=== PATIENT | female | born 1980 | race Caucasian/White ===

== ENCOUNTER 2021-08-18 17:00 | Inpatient (IN) | payer SELFPAY, OTHER ==
[2021-08-18] VITALS (8 sets, daily range): BP systolic 91–116; BP diastolic 36–63; PULSE 82–94; RESP 18; TEMP 36.1–36.5; O2SAT 97–98; BMI 31.8
[2021-08-18 17:06] LABS: Bedside Glucose 96 mg/dL (74-106)
--- NOTE | 2021-08-18 17:12 | NURSING ---
pt reports taking herbal supplements and unsure of dosage, these include; [place], liquid chlorophyll, evening primose, 6 week formula, and AIM Bar[place] of life.
--- NOTE | 2021-08-18 17:21 | HP.PCM.OB_ITS ---
HPI - General General Date of Admission: 08/18/21 HPI Narrative ROMERO YANEZ, is a 41 F who presents at 39w6d by LMP, confirmed by ultrasound. Presents with complaint of contractions on and off since 08/13/21 at last office visit. Unstable lie and cephalic by US at last visit. Contractions increased this afternoon after taking castor oil around noon today. No leakage of fluid or bleeding. Good movement. Patient was transfer of care from [facility] at 28 weeks. History of Vaginal delivery x 6 and LTCS with three layer closure at [place] 07/13/19 due to hand presentation. PPH and required blood transfusion. Maternal Data Information GAETANO Calculator Estimated Delivery Date Method Current WG Current Estimate 08/19/21 Manual 39w 6d PFSH PFSH Home Medications Evening [place] 08/18/21 [History Last Taken Unknown] calcium 08/18/21 [History Last Taken Unknown] magnesium 08/18/21 [History Last Taken Unknown] vit [id number] <1mg-diet1 08/18/21 [History Last Taken Unknown] Allergy/AdvReac Type Severity Reaction Status Date / Time No Known Allergies Allergy Verified 08/18/21 16:27 NST FHR Rate Baby A Baseline: 125 Variability:: Moderate Accelerations:: 15 x 15 Decelerations:: None FHR Category:: Category I Uterine Activity:: Every 2-4 minutes, mild ROS Constitutional Constitutional: Reports systems reviewed and no addt'l complaints, except as documented; Denies headache(s) Eyes Eyes: Denies acute decrease in peripheral vision, blurry vision or change in vision ENT HEENT: Reports systems reviewed and no addt'l complaints, except as documented Cardiovascular Cardiovascular: Denies chest pain or dizziness Respiratory/Chest Respiratory/Chest: Denies cough, dyspnea, dyspnea on exertion, shortness of breath at rest or shortness of breath with exertion Gastrointestinal Gastrointestinal: Denies abdominal pain, diarrhea, nausea or vomiting Genitourinary Genitourinary: Denies abdominal discomfort or movement Musculoskeletal Musculoskeletal: Denies limited range of motion Integumentary Integumentary: Reports systems reviewed and no addt'l complaints, except as documented Neurologic Neurologic: Reports systems reviewed and no addt'l complaints, except as documented Psychiatric Psychiatric: Reports systems reviewed and no addt'l complaints, except as documented Endocrine Endocrinology: Reports systems reviewed and no addt'l complaints, except as documented Hematologic/Lymphatic Hematologic/Lymphatic: Reports systems reviewed and no addt'l complaints, except as documented Allergic/Immunologic Allergic/Immunologic: Reports systems reviewed and no addt'l complaints, except as documented Vital Signs Vital Signs Vital Signs: 08/18/21 16:16 Temperature 97.0 F L Temperature Source Temporal Pulse Rate 84 Blood Pressure 116/63 BP Systolic 116 BP Diastolic 63 Pulse Ox 97 Weight Weight: 168 lb 8 oz Body Mass Index (BMI) 31.8 Physical Exam Const alert and oriented x3 General Appearance: cooperative Orientation / Consciousness: awake, oriented to person, oriented to place and oriented to time Exam Limitations: no limitations HEENT normocephalic Head and Scalp: normal to inspection, normocephalic and atraumatic Face and Sinus: normal facial exam Eyes General Eye: normal appearance of both eyes Neck full ROM Chest Chest: symmetrical chest wall rise Resp normal respiratory effort and normal air movement Auscultation: clear to auscultation bilaterally Cardio regular rate, regular rhythm, S1 normal heart sound, S2 normal heart sound, no murmurs, no rub, no gallops and no clicks GI normal to inspection, nondistended, normoactive bowel sounds and non-tender GI Narrative: breech by leopolds. Limited bedside US confirms breech presentat ion with head to maternal right. appearance of the vagina normal Bladder / Kidney Exam: no CVA tenderness Manual OB Exam: presentation breech, dilated 1, effaced 50 and station -4 Back/Spine normal ROM Extremity normal to inspection and full ROM Skin no rashes or lesions noted Neuro oriented x3, CN's II-XII intact bilaterally and moves all extremities Sensorium / Orientation: awake, alert and oriented to person Motor Exam: clonus absent Deep Tendon Reflexes: Rt Patellar (L4): 2+ and Lt Patellar (L4): 2+ Labs Labs Labs: No Data to Display Declines HIV and Hepatitis C RPR negative HBsAG negative Rubella Immune B positive GC/CT negative GBS negative Assessment & Plan (1) Advanced maternal age (AMA) in : (2) History of section: (3) Grand multipara: (4) History of vaginal delivery: (5) History of hemorrhage: (6) History of depression: (7) Unstable lie of fetus, antepartum: (8) Breech presentation: (9) GDM (gestational diabetes mellitus), class A1: PLAN: 1) Admit to labor and delivery 2) Routine labs. BS 96 3) Reviewed breech presentation and unstable lie. Recommend repeat section due to cervical exam and unfavorable at this time. Discussed ECV as an option and not contraindicated but cervical unfavorable and would not AROM with current station and risk for cord prolapse. After patient and discussed, would like repeat LTCS. 4) 2grams Ancef 5) collaborative physician and notified of patient status and plan of care
[2021-08-18] MEDS: Lactated Ringers 1,000 ML 999 ML IV (17:45)
[2021-08-18 18:07] LABS: Absolute Lymphocyte Count 1.17 X10^3/uL (0.83-4.51); Absolute Neutrophil Count 6.8 X10^3/uL (2.0-7.7); Basophil# 0.03 X10^3/uL; Basophil% 0.4 % (0-1); Eosinophil# 0.04 X10^3/uL; Eosinophils% 0.5 % (0-5); Hemoglobin 13.3 g/dL (12.0-15.0); Lymphocyte # 1.17 X10^3/ul (0.83-4.51); Lymphocyte % 13.7 % (19-41); Mean Corp Hgb Conc 35.9 g/dL (32-36); Mean Corpuscular Hgb 33.3 pg (27.0-32.0); Mean Corpuscular Volume 92.5 fL (81-99); Mean Platelet Vol. 9.9 fl (6.2-12.0); Monocyte# 0.39 X10^3/uL; Monocyte% 4.6 % (0-10); NRBC Flagged by Analyzer 0 % (0-5); Neutrophil # 6.81 X10^3/uL (2.7-7.7); Neutrophil % 79.7 % (47-70); Platelet Count 188 K/mm3 (150-450); RBC Distribution Width SD 47.8 fl (35.1-43.9); White Blood Count 8.5 K/mm3 (4.4-11.0)
--- NOTE | 2021-08-18 18:30 | PCM.PN.BLA ---
Progress Note At bedside to recheck pt. She is comfortable appearing but abad regularly. Cvx 1/t/h, breech. Recommend repeat section given unstable lie and now breech presentation. Patient desires to proceed with section after discussion of r/b/a.
[2021-08-18] MEDS: Acetaminophen 500 MG Tablet 1000 MG PO (18:31)
[2021-08-18] MEDS: Lactated Ringers 1,000 ML 150 ML IV (18:54)
[2021-08-18 19:05] LABS: HIV - WCH Non-Reactive (Nonreactive)
[2021-08-18 19:50] LABS: Hepatitis C Antibody Non-Reactive (Nonreactive)
[2021-08-18] MEDS: Sodium Citrate/Citric Acid 30 ML UDC PO (21:43)
[2021-08-18] MEDS: Cefazolin 2 GM in 0.9% Normal Saline 100 ML IV (21:45)
--- NOTE | 2021-08-18 23:37 | PCM.OPRPT ---
Problems Associated Problem List Diagnoses (1) Advanced maternal age (AMA) in : (2) History of section: (3) Grand multipara: (4) History of hemorrhage: (5) History of depression: (6) Unstable lie of fetus, antepartum: (7) Breech presentation: (8) GDM (gestational diabetes mellitus), class A1: Report of Operation Date of Procedure: 08/18/21 Pre-Operative Diagnosis: 39 week gestation, breech presentation, unstable lie, contractions at term, A1GDM, AMA, multiparity, history of prior section Post-Operative Diagnosis: As above Surgery/Procedure Performed:: RLTCS via pfannenstiel incision Description of Surgical Findings:: Minimal amount of adhesive disease. Normal uterus and adnexa. Clear fluid. VMI in complete breech presentation. Normal appearing placenta. Apgars 8, 9. Surgeon: Christina Dong head banquet waitress: Kimberley head banquet waitress: Yessenia Amin Type of Anesthesia: Spinal Special Medications: None Specimen's removed: Placenta Drains: [place] Estimated Blood Loss (mL): 900 Fluids Replaced: 1400 Description of Procedure: Indications: Pt presented at 39 plus weeks gestation with regular contractions. Found to be breech presentation. H/o prior section. Patient desires repeat section. The patient was taken to the operating room where spinal anesthesia was found be adequate. She was prepped and draped in the dorsal position with a leftward tilt. A Pfannenstiel skin incision was made with a scalpel and this was carried down to the underlying layer of fascia. The fascia was incised in midline. The fascia was extended laterally using Brenner scissors. The fascia was dissected off the rectus muscles using a combination of sharp and blunt dissection. The rectus muscles were adhered in the midline. The rectus muscle was were with a combination of sharp and blunt dissection. The peritoneum was entered sharply with good visualization of the bladder. The peritoneal incision was extended bluntly. A bladder flap was created. A bladder blade was inserted. A low transverse incision was made in the uterus with a scalpel. The buttocks was brought to the hysterotomy and the membranes were ruptured for clear fluid. The buttocks, legs and body, arms, followed by head of the were delivered easily through the hysterotomy. The was delivered without any force or delay,and the head was in flexed position during delivery. The cord was clamped and cut after a slight delay. The infant was handed off to the waiting nursing staff. Uterus was exteriorized. Placenta was removed with manual extraction. Uterus was cleared of all clot and debris. The hysterotomy was closed with Vicryl in a running locked fashion. A right broad ligament extension was noted and several additional [id number] sutures were placed in this extension for hemostasis. At this point a right broad ligament hematoma was noted. Dr. Amin was called in to assist. Once Dr. Amin was present she inspected the hysterotomy and the extension. The serosa was reapproximated using 3-0 Vicryl. FloSeal was placed over the extension. Hemostasis was noted. The hematoma was noted to be stable in size. Jacque clamps were then placed on the peritoneum and the peritoneum was closed with 3-0 Vicryl in a running fashion. The rectus muscles were inspected and noted to be hemostatic. At this point Dr. Amin left the case. The fascia was closed with stratafix in a running fashion. The subcutaneous space was irrigated and made hemostatic with the Bovie cautery. Subcutaneous space was reapproximated using 3-0 Vicryl. The skin was closed with subcuticular fashion using 4-0 Monocryl. A dressing was placed. Instrument, sponge, needle counts were correct. The patient was taken recovery in stable condition. Dr. Amin was present immediately after the first layer of closure of the hysterotomy to inspect the hysterotomy and extension. She assisted with the second layer of closure of the hysterotomy, and with closure of the peritoneum. Grafts/Implants Used: None Complications None Admit VTE Documentation VTE Present on Admission: No VTE Mechan Device Prophylaxis: SCD's
[2021-08-18] MEDS: Oxytocin 30 units/NS 500 ml 30 UNITS/500 ML IV.SOLN 167 UNITS IV (23:47)
[2021-08-19] VITALS (23 sets, daily range): BP systolic 77–106; BP diastolic 29–63; PULSE 54–96; RESP 14–18; TEMP 36.2–36.8; O2SAT 95–100
[2021-08-19] MEDS: Acetaminophen 500 MG Tablet 1000 MG PO ×4 (00:53→18:47)
[2021-08-19] MEDS: Ketorolac 30 MG/ML Syringe IV ×4 (00:55→18:47)
[2021-08-19] MEDS: Lactated Ringers 1,000 ML 100 ML IV (02:44)
--- NOTE | 2021-08-19 03:15 | NURSING ---
Connor from anesthesia notified that bp running low 77-80/37-45 and c/o lightheadedness. 500 cc bolus LR ordered.
[2021-08-19] MEDS: Lactated Ringers 500 ML 999 ML IV (03:20)
--- NOTE | 2021-08-19 04:28 | NURSING ---
Pt denies feeling lightheaded or dizzy. snack given
[2021-08-19 04:41] LABS: Bedside Glucose 124 mg/dL (74-106)
[2021-08-19 05:47] LABS: Hematocrit 27.8 % (37-47); Mean Corpuscular Volume 91.7 fL (81-99); Mean Platelet Vol. 9.7 fl (6.2-12.0); Platelet Count 158 K/mm3 (150-450); RBC Distribution Width CV 14.3 % (11.6-14.6); RBC Distribution Width SD 47.7 fl (35.1-43.9); Red Blood Count 3.03 M/mm3 (4.2-5.4)
--- NOTE | 2021-08-19 09:30 | PN.OBGYN_ITS ---
Objective Data Objective Data Vital Signs: Vital Signs Temp Pulse Resp BP Pulse Ox 97.3 F L 67 16 87/46 L 97 08/19/21 08:10 08/19/21 08:10 08/19/21 08:10 08/19/21 08:10 08/19/21 08:10 Oxygen Delivery Method Room Air Weight: 168 lb 8 oz Body Mass Index (BMI) 31.8 Intake & Output: Intake and Output for Last 24 Hours 08/17/21 08/18/21 08/19/21 23:59 23:59 23:59 Intake Total 1550.0 / 1550.0 3398. / 3398.22 Output Total 800 / 800 Balance 1550.0 / 1550.0 2598. / 259. Lab / Micro Data Result Diagrams: 08/19/21 05:25 Labs: Laboratory Results - last 24 hr 08/18/21 17:01: POC Glucose 96 08/18/21 17:45: WBC 8.5, RBC 4.00 L, Hgb 13.3, Hct 37.0, MCV 92.5, MCH 33.3 H, MCHC 35.9, RDW Std Deviation 47.8 H, RDW Coeff of Kristal 14.0, Plt Count 188, MPV 9.9, Immature Gran % (Auto) 1.100 H, Neut % (Auto) 79.7 H, Lymph % (Auto) 13.7 L , [place] % (Auto) 4.6, Eos % (Auto) 0.5, Baso % (Auto) 0.4, Absolute Neuts (auto) 6.8, Absolute Lymphs (auto) 1.17, Nucleated RBC % 0 08/18/21 17:45: Blood Type B POSITIVE, Antibody Screen NEGATIVE 08/18/21 17:45: HIV 1&2 Antibody Non-Reactive 08/18/21 17:45: Hepatitis C Antibody Non-Reactive 08/19/21 04:10: POC Glucose 124 H 08/19/21 05:25: WBC 9.0, RBC 3.03 L, Hgb 10.0 L, Hct 27.8 L, MCV 91.7, MCH 33.0 H, MCHC 36.0, RDW Std Deviation 47.7 H, RDW Coeff of Kristal 14.3, Plt Count 158, MPV 9.7 Assessment & Plan (1) GDM (gestational diabetes mellitus), class A1: PLAN: Check FBS tomorrow AM as 4am BS not fasting (2) S/P section: COMMENT: POD#1 PLAN: Heme - HDS, CBC reviewed ID - AF, no signs infection - d/c [place] this afternoon Routine PP care
[2021-08-19] MEDS: Senna/Docusate Sodium 1 Tablet PO (12:02)
[2021-08-19] MEDS: 0.9% Saline Lock 10 ML Syringe IV (18:48)
[2021-08-20] MEDS: Ibuprofen 600 MG Tablet PO ×3 (00:23→13:21)
[2021-08-20] MEDS: Acetaminophen 500 MG Tablet 1000 MG PO ×3 (00:24→13:25)
[2021-08-20 00:37] VITALS: BP 89/44; PULSE 94; RESP 16; TEMP 36.6
[2021-08-20 04:10] VITALS: BP 84/41; PULSE 77; RESP 16; TEMP 36.6
--- NOTE | 2021-08-20 08:45 | PCM.PROGNOTE ---
Subjective Subjective patient seen at bedside, doing well. Patient reports good pain control. lochia mild. dressing dry and intact. Objective Data Objective Data Vital Signs: Vital Signs Temp Pulse Resp BP Pulse Ox 97.9 F 77 16 84/41 L 98 08/20/21 04:10 08/20/21 04:10 08/20/21 04:10 08/20/21 04:10 08/19/21 19:51 Oxygen Delivery Method Room Air Weight: 76.43 kg Body Mass Index (BMI) 31.8 Intake & Output: Intake and Output for Last 24 Hours 08/18/21 08/19/21 08/20/21 23:59 23:59 23:59 Intake Total 1550.0 / 1550.0 4398.22 / 4398.22 Output Total 2200 / 2200 600 / 600 Balance 1550.0 / 1550.0 2198.22 / 2198.22 -600 / -600 Lab / Micro Data Result Diagrams: 08/19/21 05:25 Physical Exam Const alert and oriented x3 General Appearance: cooperative HEENT normocephalic Neck General: normal visual inspection GI soft to palpation and non-distended GI Narrative: Fundus firm Extremity normal to inspection and no calf tenderness Skin no rashes or lesions noted Neuro oriented x3 and CN's II-XII intact bilaterally Psych mental status grossly normal
--- NOTE | 2021-08-20 08:46 | PCM.DC ---
Discharge Instructions Diet Discharge Diet: No restrictions Activity May resume sexual activity in: 6-8 weeks Lifting Restrictions: 25 Dressing / Incision Call your doctor if your incision/area has: Continuous Slow Oozing, Sudden Increased Bleeding, Increased Pain/ Swelling, Increased Redness, Foul Smelling Discharge and Swelling at the incision site Call your doctor if you observe: Fever of 101 or Higher, Inability to urinate, Using more than 1 pad per hour and Uncontrolled pain Additional Dressing/Incision Instructions:: remove dressing at 7 days post op- if it becomes saturated prior to that time you may remove it. Let soap and water run over incision sites and dab dry. keep incision clean and dry. Follow Up Care Please Follow Up With: Sarah Harrington MD When: 1-2 weeks post of incision check and again at 6 weeks post . [phone] Test Results: Test results from this visit will be discussed in further detail at your follow-up appointment, if applicable. Discharge Plan Admission Admit Date/Time: 08/18/21 17:00 Attending Provider: Josey Bacon Primary Care Provider: Sidney Mahoney Discharge Orders/Prescriptions Prescriptions: New acetaminophen 500 mg Tablet 1,000 mg PO Q6H Qty: 0 RF: 0 ibuprofen 600 mg Tablet 600 mg PO Q6H Qty: 0 RF: 0 simethicone [Mi-Acid Gas Relief(simethicon)] 80 mg Tablet,Chewable 80 mg PO PCHS PRN (Reason: Indigestion/stomach pain) Qty: 0 RF: 0 Continued Evening [place] RF: 0 calcium RF: 0 magnesium RF: 0 vit [id number] <1mg-diet1 RF: 0 Referrals / Follow Up: Sidney Mahoney, [Primary Care Provider] - Disposition Disposition (needs filled in before D/C Order can be placed): Home, Self Care
--- NOTE | 2021-08-20 08:48 | PCM.DC.BLA ---
Discharge Summary Date of Admission: 08/18/21 Date of Discharge: 08/20/21 Summary: Patient was admitted to [facility] on 08/18/2021 in labor TOLAC. Patient was found to be breech and underwent a repeat low transverse section. Patient had an uncomplicated postoperative course and was discharged home on postoperative day #2. Meaningful Use Info Meaningful Use Diagnoses (Choose all that apply): None applicable Discharge Plan Admission Admit Date/Time: 08/18/21 17:00 Attending Provider: Josey Bacon Primary Care Provider: Sidney Mahoney Discharge Orders/Prescriptions Prescriptions: New acetaminophen 500 mg Tablet 1,000 mg PO Q6H Qty: 0 RF: 0 ibuprofen 600 mg Tablet 600 mg PO Q6H Qty: 0 RF: 0 simethicone [Mi-Acid Gas Relief(simethicon)] 80 mg Tablet,Chewable 80 mg PO PCHS PRN (Reason: Indigestion/stomach pain) Qty: 0 RF: 0 Continued Evening [place] RF: 0 calcium RF: 0 magnesium RF: 0 vit [id number] <1mg-diet1 RF: 0 Referrals / Follow Up: Sidney Mahoney DO [Primary Care Provider] - Disposition Disposition (needs filled in before D/C Order can be placed): Home, Self Care
[2021-08-20 09:01] VITALS: BP 97/42; PULSE 90; RESP 16; TEMP 36.3
== END 2021-08-20 15:15 | disposition home or self-care (01) | DRG 788 ==
LOC: WPOUT 17:07 → WP 17:07
PROVIDERS: Obstetrics & Gynecology; Admitting Provider Advanced Practice Midwife; PCP Family Medicine; Referring Provider Advanced Practice Midwife; Visit Provider Advanced Practice Midwife
DX: O34.211 Maternal care for low transverse scar from previous cesarean delivery (principal); O24.429 Gestational diabetes mellitus in childbirth, unspecified control; N83.7 Hematoma of broad ligament; O99.892 Other specified diseases and conditions complicating childbirth; O32.1XX0 Maternal care for breech presentation, not applicable or unspecified; O32.0XX0 Maternal care for unstable lie, not applicable or unspecified; Z37.0 Single live birth; Z87.59 Personal history of other complications of pregnancy, childbirth and the puerperium; Z3A.39 39 weeks gestation of pregnancy
CPT/HCPCS: 59025; 59050; 76815; 82962; 85025; 85027; 86703; 86803; 86850; 86900; 86901; 99218; J7120; A4216; G0378; J2405